=== PATIENT | male | born 1965 | race Two or more races ===

== ENCOUNTER → 2022-08-26 | Emergency (ER) | payer OTHER ==
[~2022-08-26] VITALS: Ht 188 cm; Wt 99.8 kg
== END | disposition home or self-care (01) ==
LOC: ER 09:17
DX: S80.869A Insect bite (nonvenomous), unspecified lower leg, initial encounter (principal); L08.9 Local infection of the skin and subcutaneous tissue, unspecified; W57.XXXA Bitten or stung by nonvenomous insect and other nonvenomous arthropods, initial encounter